=== PATIENT | male | born 1970 | race Caucasian/White ===

== ENCOUNTER 2023-09-18 13:59 | Emergency (ER) | payer BC, SELFPAY ==
[2023-09-18] VITALS (7 sets, daily range): BP systolic 97–133; BP diastolic 55–84; PULSE 58–69; RESP 16–20; TEMP 36.7–36.8; O2SAT 94–99; BMI 20.9
--- NOTE | 2023-09-18 14:06 | HMH.EDGENADL ---
Discharge Plan Disposition Patient Disposition: Home, Self-Care Condition: Good Prescriptions Prescriptions: New methocarbamol 750 mg tablet 750 mg PO Q8H Qty: 90 0RF meloxicam 15 mg tablet 15 mg PO DAILY Qty: 10 0RF Referrals Follow up/Referrals: William Beltre [Primary Care Provider] - See instructions Activity Restrictions/Add. Instructions Additional Instructions/Restrictions: Please follow-up with your primary care provider. Please return with any new or worsening symptoms. If your symptoms persist you may want to consider physical therapy for what seems to be most suspicious for musculoskeletal type of pain. I recommend trialing laxatives if you are having pain worsened by having a bowel movement. Clinical Impressions Clinical Impression: Acute right flank pain Instructions Patient Instructions: Sacroiliac Joint Pain, DI Sacroiliac Joint Dysfunction Discharge ED Provider: Phan Velez Adult HPI General Chief complaint: Abdominal Pain Stated complaint: lower back pain and side pain Time Seen by Provider: 09/18/23 14:06 History of Present Illness HPI narrative: Patient presents with several days of right-sided flank pain, gradual in onset, possibly precipitated by positional change while working, constant, stable in course, it is moderate in severity and dull. He denies any fevers or chills or dysuria or frequency or history of kidney stones. He denies any overt trauma. He has not had similar symptoms before although does describe chronic back issues. He denies any midline back pain. He denies any numbness or tingling. He denies any incontinence or saddle anesthesia. Symptoms are worsened with bearing down and bowel movement. He denies any blood in his stool. He is able to pass flatus. Please note that above description of symptoms, in this electronic medical record under categorization of recalled from ER triage doctor by RN are reflective of an initial nursing assessment, however, is not reflective of my full history and physical exam that was personally taken and clarified. Consequentially, this preceding description of symptoms, which may include the patient's categorized chief complaint in the EMR, do not reflect my personal clinical impression, and the ultimate description of history of present illness and patient stated complaints should be deferred to this section of the note. Unless stated otherwise or congruent with this section of the note, additional signs, symptoms, or incongruence should be interpreted as inaccurate with my clinical impression. Related Data Previous Rx's Medication Instructions Recorded meloxicam 15 mg tablet 15 mg PO DAILY #10 tabs 09/18/23 methocarbamol 750 mg tablet 750 mg PO Q8H #90 tabs 09/18/23 Allergies Allergy/AdvReac Type Severity Reaction Status Date / Time No Known Allergies Allergy Verified 09/18/23 14:59 [facility] Disclaimer: The information contained in this section may have been updated after the patient was seen, as this information can be updated by other users. Social History Smoking Status: Current every day smoker alcohol intake: current current occupational status: other Travel in the last 8 weeks: None ROS Obtained: Yes Systems reviewed as appropriate & no additional complaints except as documented As per HPI Physical Exam General General appearance: alert and in no apparent distress Head Head exam: atraumatic and normocephalic Eye Eye exam: Present normal appearance Neck Neck exam: Present normal inspection Chest Chest inspection: Present normal inspection and symmetric chest wall rise Respiratory Respiratory exam: Present normal lung sounds bilaterally; Absent respiratory distress Cardiovascular Cardiovascular exam: Present regular rate and normal rhythm Abdominal Exam Abdominal exam: Present soft Back Exam Back exam: Present other (Right flank tenderness to palpation, no overt tenderness over sacroiliac joint, no tenderness in midline spine, patient is able to ambulate, however with pain, consistent with what he is describing, reflexes within normal limits. No distal neurovascular deficits) Neurological Exam Neurological exam: Present alert and oriented X3 Psychiatric Psychiatric exam: Present normal affect and normal mood Skin Skin exam: Present warm and dry Medical Decision Making Medical Records Medical records reviewed: Yes I reviewed the patient's medical records. [place] Inquiry Pt receiving controlled substance: No Vital Signs: 09/18/23 14:00 09/18/23 14:11 09/18/23 14:29 Temperature 98.2 F Temperature Source Oral Pulse Rate 69 58 L Pulse Rate [Left Radial] 69 Respiratory Rate 18 Blood Pressure 124/83 129/84 Blood Pressure [Right Arm] 124/83 Blood Pressure Mean Blood Pressure Mean [Right Arm] 96 Blood Pressure Source [Right Arm] Automatic Cuff Blood Pressure Position [Right Arm] Sitting 02 Sat by Pulse Oximetry 99 96 96 Oxygen Delivery Method Room Air 09/18/23 15:00 09/18/23 15:31 09/18/23 16:00 Temperature Temperature Source Pulse Rate 69 59 L 59 L Pulse Rate [Left Radial] Respiratory Rate 20 Blood Pressure 107/79 L 133/67 97/55 L Blood Pressure [Right Arm] Blood Pressure Mean 88 89 72 Blood Pressure Mean [Right Arm] Blood Pressure Source [Right Arm] Blood Pressure Position [Right Arm] 02 Sat by Pulse Oximetry 98 94 L 96 Oxygen Delivery Method Room Air Room Air 09/18/23 16:34 Temperature 98.0 F Temperature Source Pulse Rate 59 L Pulse Rate [Left Radial] Respiratory Rate 16 Blood Pressure 133/67 Blood Pressure [Right Arm] Blood Pressure Mean Blood Pressure Mean [Right Arm] Blood Pressure Source [Right Arm] Blood Pressure Position [Right Arm] 02 Sat by Pulse Oximetry Oxygen Delivery Method Lab Data Lab Results 09/18/23 14:35: WBC 8.6, RBC 4.44 L, Hgb 12.9 L, Hct 39.5 L, MCV 89.1, MCH 29.1, MCHC 32.6, RDW 14.1, Plt Count 446 H, MPV 7.4, Neut % (Auto) 65.1, Lymph % (Auto) 20.5, Kid[place] % (Auto) 7.9, Eos % (Auto) 5.8, Baso % (Auto) 0.8, Neut # (Auto) 5.6, Lymph # (Auto) 1.8, Kidder # (Auto) 0.7, Eos # (Auto) 0.5 H, Baso # (Auto) 0.1, Sodium 137, Potassium 3.9, Chloride 103, Carbon Dioxide 31 H, Anion Gap 6.9, BUN 12, Creatinine 0.70, Estimated Creat Clear 116, Estimated GFR 118, Est GFR ( Amer) 142, Glucose 94, Calcium 9.0, Total Bilirubin 0.3, AST 24, ALT 18, Alkaline Phosphatase 71, Total Protein 6.5, Albumin 4.0, Globulin 2.5, Albumin/Globulin Ratio 1.6 09/18/23 15:41: Urine Color Yellow, Urine Appearance Clear, Urine pH 6.0, Ur Specific [place] 1.015, Urine Protein Negative, Urine Glucose (UA) Negative, Urine Ketones Negative, Urine Blood Negative, Urine Nitrate Negative, Urine Bilirubin Negative, Urine Urobilinogen 1.0, Ur Leukocyte Esterase Negative, Urine RBC None, Urine WBC None, Ur Squamous Epith Cells None, Urine Bacteria None 09/18/23 14:35 09/18/23 14:35 Orders (Tests/Meds): ED MEDICATIONS Discontinued Medications Generic Name Dose Route Start Last Admin Trade Name Freq PRN Reason Stop Dose Admin Iopamidol 75 ml 09/18/23 15:21 09/18/23 15:22 Iopamidol-370 (76%);100ml Bottle IV 09/18/23 15:22 75 ml ONCE ONE Administration Ketorolac Tromethamine 15 mg 09/18/23 14:25 09/18/23 15:02 Ketorolac 30mg/Ml Vial IV 09/18/23 14:26 15 mg ONCE ONE Administration Sodium Chloride 10 ml 09/18/23 15:21 09/18/23 15:22 Sodium Chloride 0.9% 10ml Syr (Rad Only) IV 10/18/23 15:20 10 ml NEEDED PRN Administration Maintain IV Site ORDERS Category Date Time Status CT abdomen pelvis w con Stat Cat Scan 09/18/23 14:25 Completed CBC w/Auto Diff [Complete Blood Count Auto Diff] Stat Lab 09/18/23 14:35 Completed CMP [Comprehensive Metabolic Panel] Stat Lab 09/18/23 14:35 Completed Urinalysis and Microscopic Stat Lab 09/18/23 15:41 Completed Medical Decision Narrative: Patient with history and exam per above presenting for evaluation of flank pain Diagnoses considered include Appendicitis, cecal diverticulitis, ureterolithiasis, bowel obstruction, bowel perforation, hernia, epiploic appendagitis, mesenteric adenitis, constipation, musculoskeletal pain, low index of suspicion for cauda equina syndrome or fracture, clinical course is more concerning at this time for dissection, or mesenteric ischemia ED workup and treatment included: ED MEDICATIONS Discontinued Medications Generic Name Dose Route Start Last Admin Trade Name Freq PRN Reason Stop Dose Admin Iopamidol 75 ml 09/18/23 15:21 09/18/23 15:22 Iopamidol-370 (76%);100ml Bottle IV 09/18/23 15:22 75 ml ONCE ONE Administration Ketorolac Tromethamine 15 mg 09/18/23 14:25 09/18/23 15:02 Ketorolac 30mg/Ml Vial IV 09/18/23 14:26 15 mg ONCE ONE Administration Sodium Chloride 10 ml 09/18/23 15:21 09/18/23 15:22 Sodium Chloride 0.9% 10ml Syr (Rad Only) IV 10/18/23 15:20 10 ml NEEDED PRN Administration Maintain IV Site ORDERS Category Date Time Status CT abdomen pelvis w con Stat Cat Scan 09/18/23 14:25 Completed CBC w/Auto Diff [Complete Blood Count Auto Diff] Stat Lab 09/18/23 14:35 Completed CMP [Comprehensive Metabolic Panel] Stat Lab 09/18/23 14:35 Completed Urinalysis and Microscopic Stat Lab 09/18/23 15:41 Completed Labs were independently interpreted by me, significant for no acute findings Imaging was independently visualized and interpreted by me, significant for no acute findings please refer to radiology report for full details. My clinical impression at this time is most consistent with right-sided musculoskeletal pain for which patient will follow-up with PCP, try multimodal therapy, return with any new or worsening symptoms. I discussed my clinical impression with patient and answered all questions. At this time, the evidence for any other entities in the differential is insufficient to warrant any further testing or ED observation. This was explained to the patient. The patient was advised that persistent or worsening symptoms require further evaluation. I confirmed the patient's understanding of this discussion. Critical Care Critical Care Time Critical Care Time: No
--- NOTE | 2023-09-18 14:25 | CT_ITS ---
PROCEDURE INFORMATION: Exam: CT Abdomen And Pelvis With Contrast Exam date and time: 09/18/2023 3:21 PM Age: 53 years old Clinical indication: Abdominal pain; Flank; Right; Additional info: R sided flank pain, constipation TECHNIQUE: Imaging protocol: Computed tomography of the abdomen and pelvis with contrast. Radiation optimization: All CT scans at this facility use at least one of these dose optimization techniques: automated exposure control; mA and/or kV adjustment per patient size (includes targeted exams where dose is matched to clinical indication); or iterative reconstruction. Contrast material: ISOVUE; Contrast volume: 75 ml; Contrast route: IV; COMPARISON: No relevant prior studies available. FINDINGS: Liver: Normal. No mass. Gallbladder and bile ducts: Normal. No calcified stones. No ductal dilation. Pancreas: Normal. No ductal dilation. Spleen: Normal. No splenomegaly. Adrenal glands: Normal. No mass. Kidneys and ureters: Normal. No hydronephrosis. Stomach and bowel: Unremarkable. No obstruction. No mucosal thickening. Appendix: No evidence of appendicitis. Intraperitoneal space: Unremarkable. No free air. No significant fluid collection. Vasculature: Unremarkable. No abdominal aortic aneurysm. Lymph nodes: Unremarkable. No enlarged lymph nodes. Urinary bladder: Unremarkable as visualized. Reproductive: Unremarkable as visualized. Bones/joints: Unremarkable. No acute fracture. Soft tissues: Unremarkable. IMPRESSION: No acute findings.
[2023-09-18 14:52] LABS: Basophils # 0.1 K/mm3 (0-0.2); Basophils % 0.8 % (0.1-2.0); Eosinophils # 0.5 K/mm3 (0.0-0.4); Eosinophils % 5.8 % (0.1-12.0); Hematocrit 39.5 % (42.0-52.0); Hemoglobin 12.9 g/dL (14.1-18.0); Lymphocytes # 1.8 K/mm3 (0.7-4.5); Lymphocytes % 20.5 % (10-50); Mean Corpuscular HGB Conc 32.6 g/dL (31.8-35.4); Mean Corpuscular Hemoglobin 29.1 pg (27.0-31.2); Mean Corpuscular Volume 89.1 fl (80-94); Mean Platelet Volume 7.4 fl (7.4-10.4); Monocytes # 0.7 K/mm3 (0.1-1.0); Monocytes % 7.9 % (1.7-9.3); Neutrophils # 5.6 K/mm3 (1.8-7.8); Neutrophils % 65.1 % (37.0-80.0); Platelet Count 446 K/mm3 (142-424); Red Blood Count 4.44 M/mm3 (4.60-6.20); Red Cell Distribution Width 14.1 % (11.5-17.5); White Blood Count 8.6 K/mm3 (4.8-10.8)
[2023-09-18 14:57] LABS: Chloride 103 mmol/L (98-107); Potassium 3.9 mmoL/L (3.5-5.1); Sodium 137 mmol/L (136-145)
[2023-09-18 15:00] LABS: Alanine Aminotransferase 18 U/L (12-78); Albumin/Globulin Ratio 1.6 (1.1-1.8); Alkaline Phosphatase 71 U/L (38-126); Anion Gap 6.9 mEq/L (5-15); Aspartate Amino Transferase 24 U/L (17-59); Bilirubin,Total 0.3 mg/dl (0.2-1.3); Blood Urea Nitrogen 12 mg/dl (9-20); Carbon Dioxide 31 mmol/L (22.0-30.0); Creatinine Clearance Estimated 116 mL/min (50-200); Estimated Glomerular Filt Rate 118 ml/min (>60); GFR (African American) 142 ML/MIN (>60); Globulin 2.5 g/dL (1.3-3.2); Total Protein,Serum 6.5 g/dl (6.3-8.2)
[2023-09-18 15:01] LABS: Glucose 94 mg/dl (74-100)
[2023-09-18] MEDS: KETOROLAC 30MG/ML VIAL 15 MG IV (15:02)
[2023-09-18] MEDS: SODIUM CHLORIDE 0.9% 10ML SYR (RAD ONLY) 10 ML IV (15:22)
[2023-09-18] MEDS: IOPAMIDOL-370 (76%);100ML BOTTLE 75 ML IV (15:22)
[2023-09-18 15:52] LABS: Microscopic, Urine URINE MICROSCOPIC (MICROSCOPIC)
--- NOTE | 2023-09-18 16:01 | PC.NURSE ---
call radiology who states they are reading the abd/pelvic scan now
[2023-09-18 16:08] LABS: Appearance,Urine CLEAR (Clear); Bilirubin,Urine Negative (Negative); Blood, Urine Negative (Negative); Color,Urine YELLOW (Yellow); Glucose,Urine (UA) Negative (Negative); Ketones,Urine Negative (Negative); Leukocyte Esterase,Urine Negative (Negative); Nitrate,Urine Negative (Negative); Protein,Urine Negative (Negative); Specific Gravity, Urine 1.015 (1.005-1.030)
== END 2023-09-18 16:35 | disposition home or self-care (01) ==
PROVIDERS: Emergency Provider Emergency Medicine; PCP Family Medicine
DX: R10.9 Unspecified abdominal pain (principal); M54.50 Low back pain, unspecified; F17.200 Nicotine dependence, unspecified, uncomplicated
CPT/HCPCS: 74177; 80053; 81001; 85025; 96374; 99285; Q9967